=== PATIENT | female | born 1970 | race American Indian/Alaskan Native ===

== ENCOUNTER 2017-05-04 02:37 | Emergency (ER) | payer SELFPAY ==
[2017-05-04 04:38] LABS: Anion Gap 17 mmol/L; Blood Urea Nitrogen 16 mg/dL (7-17); Calcium 9.5 mg/dL (8.4-10.2); Carbon Dioxide 22 mmol/L (22-30); Chloride 103.8 mmol/L (98-107); Glucose 91 mg/dL (65-100); Sodium 139 mmol/L (137-145)
[2017-05-04 04:40] LABS: Basophils % (Auto) 1.8 % (0.0-1.8); Eosinophils % (Auto) 1.4 % (0.0-4.3); Hematocrit 40.9 % (30.3-42.9); Mean Corpuscular HGB Conc 32 % (30-34); Mean Corpuscular Hemoglobin 26 pg (28-32); Mean Corpuscular Volume 83 fl (79-97); Red Blood Count 4.96 M/mm3 (3.65-5.03); White Blood Count 5.8 K/mm3 (4.5-11.0)
[2017-05-04 04:50] LABS: INR 0.99 (0.87-1.13); Partial Thromboplastin Time 29.8 Sec. (24.2-36.6)
[2017-05-04 04:53] LABS: Red Cell Distribution Width 21.9 % (13.2-15.2)
[2017-05-04 06:25] LABS: Platelet Count 91 K/mm3 (140-440)
[2017-05-04] MEDS ORDERED: PERCOCET 5/325 PO ONE (12:05)
--- NOTE | 2017-05-04 12:53 | XRay Report ---
ROUTINE CHEST, TWO VIEWS: HISTORY: chest pain. The trachea, heart, mediastinal contour, lung dudley and bony thorax are unremarkable. IMPRESSION: Unremarkable chest x-ray.
[2017-05-04] MEDS ORDERED: NORVASC PO ONE (13:20)
[2017-05-04 13:24] VITALS: BP 159/95
--- NOTE | 2017-05-04 13:36 | Emergency Department Report ---
ED Chest Pain HPI - General Chief Complaint: Chest Pain Stated Complaint: ELEVATED BP Time Seen by Provider: 05/04/17 11:55 Source: patient Mode of arrival: Ambulatory Limitations: No Limitations - History of Present Illness Initial Comments: 46 year old female with a past medical history hypertension and aortic valve replacement (February 2016) presents to the hospital complains of left-sided chest pain and elevated blood pressure. Pain is in the upper left chest and rated 7/ 10 intensity. Pain is constant, sharp, worse with palpation. Patient denies shortness of breath, nausea, vomiting, diaphoresis, cough, fever, calf enderness , or edema. Patient is compliant with her Xarelto 20 mg daily. She has been noncompliant with her unknown blood pressure medication for the past 3 months. Patient does not have a local PMD or employee relations director. Patient states she's had a stress test in the last 1-2 years. Severity scale (0 -10): 0 - Related Data Previous Rx's Medication Instructions Recorded Last Taken Type Rivaroxaban [Xarelto] 20 mg PO QDAY #30 tab 05/04/17 Unknown Rx amLODIPine [Norvasc] 10 mg PO DAILY #30 tab 05/04/17 Unknown Rx Allergies Allergy/AdvReac Type Severity Reaction Status Date / Time No Known Allergies Allergy Verified 05/04/17 03:48 Heart Score - HEART Score History: Slightly suspicious EKG: Non-specific Age: 45-65 Risk factors: 1-2 risk factors Troponin: < normal limit HEART Score: 3 ED Review of Systems ROS: Stated complaint: ELEVATED BP Other details as noted in HPI Comment: All other systems reviewed and negative Other: Constitutional: No fevers chills Eyes: No eye pain visual changes ENT: No ear pain or throat pain Neck: Denies pain Respiratory: Denies cough wheezing shortness of breath Cardiovascular: Denies palpitations, syncope GI: Denies abdominal pain, nausea, vomiting, diarrhea : Denies dysuria Musculoskeletal: Denies back pain Skin: Denies rash, lesions, erythema Neurologic: Denies headache, numbness, weakness Psychiatric: Denies suicidal ideation, hallucinations ED Past Medical Hx - Past Medical History Previous Medical History?: Yes Hx Hypertension: Yes - Surgical History Past Surgical History?: Yes Additional Surgical History: aortic VALVE REPLACEMENT 02/2016 - Social History Smoking Status: Current Every Day Smoker Substance Use Type: None - Medications Home Medications: Home Medications Medication Instructions Recorded Confirmed Last Taken Type Rivaroxaban [Xarelto] 20 mg PO QDAY #30 tab 05/04/17 Unknown Rx amLODIPine [Norvasc] 10 mg PO DAILY #30 tab 05/04/17 Unknown Rx ED Physical Exam - General Limitations: No Limitations - Other Other exam information: General: No limitations, patient is alert in no acute distress Head exam: Atraumatic, normocephalic Eyes exam: Normal appearance ENT: Moist mucous membrane, normal oropharynx Neck exam: Normal inspection, full range of motion Respiratory exam: Clear to auscultation bilateral, no wheezes, rales, crackles Cardiovascular: Normal rate and rhythm, reproducible upper anterior left chest wall tenderness Abdomen: Soft, nondistended, and nontender, with normal bowel sounds, no rebound, or guarding Extremity: Full range of motion normal inspection no deformity, no calf tenderness or edema Back: Normal Inspection, full range of motion, no tenderness Neurologic: Alert, oriented x3, cranial nerves intact, no motor or sensory deficit Psychiatric: normal affect, normal mood Skin: Warm, dry, intact ED Course Vital Signs 05/04/17 05/04/17 05/04/17 03:48 06:50 10:17 Temperature 97.8 F 98.5 F 98.0 F Pulse Rate 88 77 73 Respiratory 20 12 16 Rate Blood Pressure 164/98 180/103 Blood Pressure 168/92 [Right] O2 Sat by Pulse 99 98 100 Oximetry 05/04/17 13:24 Temperature 97.9 F Pulse Rate 74 Respiratory 16 Rate Blood Pressure 159/95 Blood Pressure [Right] O2 Sat by Pulse 100 Oximetry - Reevaluation(s) Reevaluation #1: 05/04/17 13:34 Patient offer Percocet for pain and she declined. Patient seemed irritated with questioning during my history of present illness however, I explained that I needed further clarification of her HPI and past medical history since we do not have a previous record for her. BP has improved spontaneously. Patient does not recall her baseline blood pressure 05/04/17 14:02 Pt is agreeable to receiving norco. she received norvasc 10mg for bp ABBY score - Abby Score Age > 65: (0) No Aspirin use within the Past 7 Days: (0) No 3 or more CAD Risk Factors: (0) No 2 or more Angina events in past 24 hrs: (0) No Known CAD with more than 50% Stenosis: (0) No Elevated Cardiac Markers: (0) No ST Deviation Greater than 0.5mm: (0) No ABBY Score: 0 ED Medical Decision Making - Lab Data Result diagrams: 05/04/17 04:02 05/04/17 04:02 Lab Results 05/04/17 05/04/17 05/04/17 Range/Units 04:02 04:02 04:02 WBC 5.8 (4.5-11.0) K/mm3 RBC 4.96 (3.65-5.03) M/mm3 Hgb 13.0 (10.1-14.3) gm/dl Hct 40.9 (30.3-42.9) % MCV 83 (79-97) fl MCH 26 L (28-32) pg MCHC 32 (30-34) % RDW 21.9 H (13.2-15.2) % Plt Count 91 L (140-440) K/mm3 Lymph % (Auto) 29.1 (13.4-35.0) % [place] % (Auto) 8.0 H (0.0-7.3) % Eos % (Auto) 1.4 (0.0-4.3) % Baso % (Auto) 1.8 (0.0-1.8) % Lymph # 1.7 (1.2-5.4) K/mm3 [place] # 0.5 (0.0-0.8) K/mm3 Eos # 0.1 (0.0-0.4) K/mm3 Baso # 0.1 (0.0-0.1) K/mm3 Seg Neutrophils % 59.7 (40.0-70.0) % Seg Neutrophils # 3.5 (1.8-7.7) K/mm3 PT 13.6 (12.2-14.9) Sec. INR 0.99 (0.87-1.13) APTT 29.8 (24.2-36.6) Sec. Sodium 139 (137-145) mmol/L Potassium 4.0 (3.6-5.0) mmol/L Chloride 103.8 (98-107) mmol/L Carbon Dioxide 22 (22-30) mmol/L Anion Gap 17 mmol/L BUN 16 (7-17) mg/dL Creatinine 0.8 (0.7-1.2) mg/dL Estimated GFR > 60 ml/min BUN/Creatinine Ratio 20.00 % Glucose 91 (65-100) mg/dL Calcium 9.5 (8.4-10.2) mg/dL Troponin T < 0.010 (0.00-0.029) ng/mL 05/04/17 05/04/17 Range/Units 07:14 09:32 WBC (4.5-11.0) K/mm3 RBC (3.65-5.03) M/mm3 Hgb (10.1-14.3) gm/dl Hct (30.3-42.9) % MCV (79-97) fl MCH (28-32) pg MCHC (30-34) % RDW (13.2-15.2) % Plt Count (140-440) K/mm3 Lymph % (Auto) (13.4-35.0) % [place] % (Auto) (0.0-7.3) % Eos % (Auto) (0.0-4.3) % Baso % (Auto) (0.0-1.8) % Lymph # (1.2-5.4) K/mm3 [place] # (0.0-0.8) K/mm3 Eos # (0.0-0.4) K/mm3 Baso # (0.0-0.1) K/mm3 Seg Neutrophils % (40.0-70.0) % Seg Neutrophils # (1.8-7.7) K/mm3 PT (12.2-14.9) Sec. INR (0.87-1.13) APTT (24.2-36.6) Sec. Sodium (137-145) mmol/L Potassium (3.6-5.0) mmol/L Chloride (98-107) mmol/L Carbon Dioxide (22-30) mmol/L Anion Gap mmol/L BUN (7-17) mg/dL Creatinine (0.7-1.2) mg/dL Estimated GFR ml/min BUN/Creatinine Ratio % Glucose (65-100) mg/dL Calcium (8.4-10.2) mg/dL Troponin T < 0.010 < 0.010 (0.00-0.029) ng/mL - EKG Data -: EKG Interpreted by Me (sinus rate 70 LVH lat inferior lateral T inversions. No ST elevation NM) - EKG Data 05/04/17 13:43 Patient had 2 more EKGs while in the ED and did not show any acute change. Remaining sinus, LVH with lateral and inferior T-wave inversions and no signs of ST elevation NM - Radiology Data Radiology results: report reviewed (chest x-ray PA and lateral: Unremarkable) - Medical Decision Making Patient had 3 sets of negative cardiac enzymes. EKG was repeated 3 and shows no acute change. Pain is reproducible with palpation to the chest wall. Chest x-ray is unremarkable. Norvasc 10 mg will be initiated daily for blood pressure. A refill of Xarelto will be provided. Case discussed with [facility]. Follow-up appointment scheduled for further monitoring of symptoms, blood pressure control, and thrombocytopenia. - Differential Diagnosis MSK pain, unstable angina, NM, PE Critical Care Time: No Critical care attestation.: If time is entered above; I have spent that time in minutes in the direct care of this critically ill patient, excluding procedure time. ED Disposition Clinical Impression: Chest wall pain, Hypertension, uncontrolled, Anticoagulant long-term use, Aortic valve replaced, Thrombocytopenia Disposition: DC-01 TO HOME OR SELFCARE Is pt being admited?: No Does the pt Need Aspirin: No Condition: Stable Instructions: Rivaroxaban (By mouth), Chest Pain (ED), Hypertension (ED), Thrombocytopenia (ED) Additional Instructions: It is very important that you follow up with the employee relations director and primary care doctor for further treatment. Return if symptoms worsen. An appointment with the employee relations director has been made for you and you have been provided a card. Prescriptions: amLODIPine [Norvasc] 10 mg PO DAILY #30 tab Rivaroxaban [Xarelto] 20 mg PO QDAY #30 tab Referrals: [facility] [Provider Group] - 3-5 Days (primary care clinic) MAXIMUS POWER MD [Staff Physician] - 3-5 Days (primary care doctor) MELECIO MARSH MD [Staff Physician] - 05/11/17 3:30 pm (employee relations director) Time of Disposition: 14:04
[2017-05-04] MEDS ORDERED: NORCO 5/325 PO ONE (14:02)
== END 2017-05-04 14:18 | disposition home or self-care (01) ==
LOC: ED 02:37
DX: I10 Essential (primary) hypertension (principal); R07.89 Other chest pain; D69.6 Thrombocytopenia, unspecified; Z79.2 Long term (current) use of antibiotics; Z95.2 Presence of prosthetic heart valve; F17.200 Nicotine dependence, unspecified, uncomplicated
CPT/HCPCS: 36415; 71020; 80048; 84484; 85025; 85610; 85730; 93005; 93010